=== PATIENT | female | born 1950 | race Caucasian/White ===

== ENCOUNTER 2016-10-07 21:28 | Emergency (ER) | payer BC, OTHER ==
[2016-10-07 20:06] LABS: BASOPHILS 0.3 %; BASOPHILS ABSOLUTE 0.03 10/3/uL (0.0-0.16); EOSINOPHILS 2.2 %; EOSINOPHILS ABSOLUTE 0.24 10/3/uL (0.0-0.53); HEMATOCRIT 42.7 % (36.0-48.0); HEMOGLOBIN 14.3 g/dL (12.0-16.0); IMMATURE GRANULOCYTES 0.2 %; IMMATURE GRANULOCYTES ABSOLUTE 0.02 10/3/uL (0.0-0.11); LYMPHOCYTES ABSOLUTE 2.49 10/3/uL (0.67-4.30); MEAN CORPUS HGB CONC 33.5 g/dL (32.0-36.0); MEAN CORPUSCULAR HEMOGLOB 30.2 pg (26.0-34.0); MEAN CORPUSCULAR VOLUME 90.3 fL (80-100); MONOCYTES 6.7 %; MONOCYTES ABSOLUTE 0.73 10/3/uL (0.21-1.20); NEUTROPHILS 67.6 %; NEUTROPHILS ABSOLUTE 7.31 10/3/uL (2.02-8.40); PLATELET COUNT 187 10/3/uL (150-400); RBC DISTRIBUTION WIDTH 13.7 % (12.0-16.0); RED CELL COUNT 4.73 10/6/uL (4.0-5.6); WHITE BLOOD CELLS 10.8 10/3/uL (4.5-10.5)
[2016-10-07 20:07] LABS: MANUAL DIFF NO %
[2016-10-07 20:13] LABS: PROTIME (NOT ORD) 12.7 SEC (12.0-14.5)
[2016-10-07 20:25] LABS: ALBUMIN 3.3 G/DL (3.5-5.0); ALKALINE PHOSPHATASE 84 U/L (45-117); CALCIUM, SERUM 8.8 MG/DL (8.5-10.4); CHEST PAIN PROFILE TAT 0 Hrs 25 Mins; CHLORIDE, SERUM 106 MMOL/L (96-112); CO2 (CARBON DIOXIDE) 27 MMOL/L (24-34); CREATININE 0.91 MG/DL (0.55-1.02); GFR AFRICAN AMERICAN 77 ML/MIN (>=60); GFR NON AFRICAN AMERICAN 66 ML/MIN (>=60); GLUCOSE, SERUM 97 MG/DL (60-99); POTASSIUM, SERUM 3.8 MMOL/L (3.5-5.3); SGOT(AST) 13 U/L (5-40); SGPT(ALT) 15 U/L (5-65); SODIUM, SERUM 140 MMOL/L (135-148); TOTAL BILIRUBIN 0.5 MG/DL (0-1.2); TOTAL PROTEIN 6.9 G/DL (6.0-8.5); TROPONIN I <0.02 NG/ML (<0.05)
[2016-10-07 20:27] LABS: BUN (BLOOD UREA NITROGEN) 10 MG/DL (6-23); DIRECT BILIRUBIN < 0.1 MG/DL (0.0-0.4); INDIRECT BILIRUBIN(NOT ORDER) 0.4 MG/DL (0.1-0.9)
[~2016-10-07 21:28] MED LIST: ACCUNEB INH; ADVAIR250 INH; ALLOPURINOL; AMITIZA24 PO; ASA5GR PO; ASAB PO; ASABAYER PO; BACDS PO; BENTYL20 PO; BLACK COHOSH; BLACK COHOSH PO; CALTRA600D PO; CELEXA20 PO; CELEXA40 MG PO; CHANTIX0.5 PO; CIP5 PO; CORTEF20 MG PO; CORTEF5 PO; DEXILANT; DEXILANT PO; DOLOPHINE5 MG PO; DYAZIDE1 CAP PO; FISH-EPA1000 MG PO; FLEX PO; FLUOROMETHOL0.1 % OP; GLAUCOMA GTT OP; GREEN TEA; GREEN TEA PO; Green Tea; HYDROCHLOROT50 MG OR; HYDROCORT10 MG OR; HYDROCORT10 MG PO; HYOMAX-FT0.125 MG PO; HYOMAX-SL0.125 MG PO; HYZAAR1 TAB PO; KAPIDEX60 MG PO; KDUR10 PO; KLOR-CON 1010 MEQ PO; KLOR-CON M2020 MEQ PO; L20 PO; L40 PO; LIBRAX PO; LIPOFLAVOVIT OR; LISINOPRIL40 MG PO; LOP25 PO; LOP50 PO; LYRICA50 PO; LYRICA75 PO; MAX25 PO; MCZ25 PO; METHATAB5B PO; METHOC500B PO; MEVACOR PO; MEVACOR40 MG PO; MIRALAXPKT PO; MSCONT60 PO; MULTIPLE VIT PO; MULTIVITAMI1 PO; NEUR300 PO; NEXIUM20 M1 PO; NEXIUM40 PO; NICODERM C14 MG/24 H TOP; NITROQUICK0.4 MG SL; NITROSTAT0.4 MG SL; NORV10 PO; NORV5 PO; OTC VITAMIN D PO; OXAPROZIN600 MG PO; P5 PO; PEP20 PO; PERCOCET1 TA4 PO; PERI-COLACE1 TAB PO; PLAVIX PO; PR25 PO; PRAVACHOL40 MG PO; PRIN10 PO; PRIN2.5 PO; PROAIR HFA INH; PROVHFA INH; PROZAC PO; PULRESP.5 INH; ROB1T PO; ROXICODONE15 MG PO; SENTAB PO; SPIRIVA INH; SUCR PO; SYMBICORT 160/41 INH INH; TAGAMET 800 MG800 MG PO; URECHOLINE50 MG PO; URO-MAG140 MG PO; VALIUM10 MG OR; VALIUM10 MG PO; VIB100 PO; VITAMIN D1000 UNI1 PO; XALAT OPH; ZANAFLEX 4 MG TA4 MG PO; ZESTRIL10 MG PO
[2017-04-02] MEDS ORDERED: CORTEF20 MG PO ×2 (20:55)
[2017-04-02] MEDS ORDERED: ZOFRAN4 PO (20:56)
[2017-04-02] MEDS ORDERED: ROXICODONE15 MG PO (20:57)
[2017-04-02] MEDS ORDERED: PROTONIX PO (20:57)
[2017-04-02] MEDS ORDERED: BENTYL20 PO (20:57)
[2017-04-02] MEDS ORDERED: [UNRECOGNIZED DRUG - OTHER] PO (20:58)
[2017-04-02] MEDS ORDERED: VITAMIN D PO (20:58)
[2017-04-02] MEDS ORDERED: IB GUARD PO (20:58)
[2017-04-02] MEDS ORDERED: PLAVIX PO (20:59)
[2017-04-02] MEDS ORDERED: PULRESP.5 INH (20:59)
[2017-04-02] MEDS ORDERED: ROB1T PO (20:59)
[2017-04-02] MEDS ORDERED: ASABAYER PO (20:59)
[2017-04-02] MEDS ORDERED: L40 PO (20:59)
[2017-04-02] MEDS ORDERED: PRIN20 PO (21:00)
[2017-04-02] MEDS ORDERED: KDUR20 PO (21:00)
[2017-04-02] MEDS ORDERED: LOP25 PO (21:00)
[2017-04-02] MEDS ORDERED: PROAIR HFA INH (21:01)
[2017-04-02] MEDS ORDERED: PRAVACHOL40 MG PO (21:01)
[2017-04-02] MEDS ORDERED: CELEXA20 PO (21:01)
[2017-04-02] MEDS ORDERED: NORV10 PO (21:01)
[2017-04-02] MEDS ORDERED: SPIRIVA INH (21:01)
[2017-04-02] MEDS ORDERED: LIOR10 PO (21:02)
[2017-04-02] MEDS ORDERED: NITROSTAT0.4 MG SL (21:02)
[2017-04-02] MEDS ORDERED: SUCR PO (21:02)
[2017-04-04] MEDS ORDERED: DSS PO (15:34)
[2017-04-04] MEDS ORDERED: HABIT21 (15:39)
== END 2016-10-07 23:30 | disposition home or self-care (01) ==
LOC: ER 21:28
PROVIDERS: Nurse Practitioner Acute Care
DX: R07.9 Chest pain, unspecified (principal); J44.9 Chronic obstructive pulmonary disease, unspecified; I25.2 Old myocardial infarction; I11.0 Hypertensive heart disease with heart failure; I50.9 Heart failure, unspecified; F17.200 Nicotine dependence, unspecified, uncomplicated; Z86.73 Personal history of transient ischemic attack (TIA), and cerebral infarction without residual deficits; Z95.0 Presence of cardiac pacemaker; Z95.5 Presence of coronary angioplasty implant and graft; Z88.5 Allergy status to narcotic agent; Z88.8 Allergy status to other drugs, medicaments and biological substances; Z79.82 Long term (current) use of aspirin; Z79.899 Other long term (current) drug therapy
CPT/HCPCS: 71010; 80048; 80076; 83690; 83735; 83880; 84484; 85025; 85610; 85730; 93005; 94640; 99285; A9270-GY